=== PATIENT | female | born 1985 | race African-American/Black ===

== ENCOUNTER 2024-12-30 19:10 | Emergency (ER) | payer OTHER, MEDICAID ==
[~2024-12-30] VITALS: Ht 165.1 cm; Wt 55.0 kg
[2024-12-30 19:14] VITALS: O2SAT 100
[2024-12-30 21:05] LABS: CLARITY URINE CLOUDY (CLEAR); COLOR URINE DARK YELLOW (YELLOW); GLUCOSE URINE NEGATIVE (NEGATIVE); KETONES URINE 2+ (NEGATIVE); LEUKOCYTE ESTERASE URINE 2+ (NEGATIVE); NITRITE URINE POSITIVE (NEGATIVE); OCCULT BLOOD URINE 2+ (NEGATIVE); PH URINE 6.0 (4.5-8.0); PROTEIN URINE 4+ (NEGATIVE); SPECIFIC GRAVITY URINE 1.032 (1.005-1.030); UROBILINOGEN URINE 1.0 E.U./dL (0.2-1.0)
[2024-12-30] MEDS: METOCLOPRAMIDE HCL 10MG/2ML VIAL IM ONE (21:20)
[2024-12-30] MEDS: DIPHENHYDRAMINE 50MG/ML VIAL IM ONE (21:20)
[2024-12-30 21:21] LABS: BACTERIA URINE 4+; SQUAMOUS EPITHELIAL CELL URINE 2+ /lpf (RARE/1+)
[2024-12-30] MEDS: ACETAMINOPHEN 325MG TABLET PO ONE (21:21)
[2024-12-30 21:22] LABS: WBC URINE 25-50 /hpf (0-2)
[2024-12-30 23:09] LABS: BASOPHILS % 0.8 % (0.0-2.0); EOSINOPHILS % 0.3 % (0.0-5.0); HEMATOCRIT. 50.0 % (36.0-48.0); HEMOGLOBIN. 17.3 g/dL (12.0-16.0); LYMPHOCYTES % 17.5 % (20.0-50.0); MEAN PLATELET VOLUME 10.5 fl (7.4-10.4); MONOCYTES % 10.4 % (2.0-8.0); NEUTROPHILS % 71.0 % (40.0-76.0); PLATELET 174 x1000/uL (130-400); RED BLOOD CELL COUNT 4.39 mill/uL (4.2-5.4); RED CELL DISTRIBUTION WIDTH 13.7 % (11.6-14.6)
[2024-12-30 23:11] LABS: ADD RBC MORPHOLOGY YES
[2024-12-30 23:12] LABS: CREATININE 0.8 mg/dL (0.6-1.0)
[2024-12-30 23:13] LABS: HCG SCREEN NEGATIVE; UREA NITROGEN BLOOD 7 mg/dL (9-23)
[2024-12-30 23:14] LABS: ASPARTATE AMINOTRANSFERASE 35 IU/L (<34)
[2024-12-30 23:15] LABS: BILIRUBIN DIRECT 0.4 mg/dL (<=3.0); BILIRUBIN TOTAL 1.6 mg/dL (0.1-1.0); PROTEIN TOTAL 8.9 g/dL (6.0-8.3)
[2024-12-30 23:21] LABS: PLATELET ESTIMATE NORMAL
[2024-12-30 23:49] LABS: INR 1.0
[2024-12-31] MEDS ORDERED: LEVETIRACETAM 1,000MG in NACL 100ML PREMIX IV SCH (00:15)
[2024-12-31] MEDS: LEVETIRACETAM 1000MG PREMIX 100 ML IV NR (00:43)
[2024-12-31] MEDS: MORPHINE SULFATE 4 MG/ML INJ (FOR IV/IM USE) IV ONE (00:43)
[2024-12-31] MEDS: NIMODIPINE 30MG CAPSULE PO ONE (00:44)
[2024-12-31] MEDS: CEFTRIAXONE 2GM/50ML 50 ML IV ONE (00:44)
[2024-12-31] MEDS: MANNITOL 12.5G (25%) VIAL 50ML IV ONE (01:06)
[2024-12-31] MEDS: MANNITOL 20% 200 ML IV NR (01:22)
[2024-12-31 01:41] VITALS: BP 145/100; PULSE 106; RESP 14; TEMP 36.9; O2SAT 98
== END 2024-12-31 01:53 | disposition short-term general hospital (02) ==
LOC: ER 19:10 → CMPBEDREQ 12-31 08:30
DX: I60.9 Nontraumatic subarachnoid hemorrhage, unspecified (principal); R10.9 Unspecified abdominal pain; Z90.710 Acquired absence of both cervix and uterus
CPT/HCPCS: 99291; 70450; 96375; 80076; 80048; 81003; 81025; 84703; 83690; 85025; 85610; 85730; 86850; 86900; 86901; 87086; 87186; 87077; 36415; 96372; 74176; 96365; 96368; J0696; J1200; J2765; J1953; J2150; J2270